=== PATIENT | male | born 1995 | race Two or more races ===

== ENCOUNTER 2023-03-02 12:53 | Emergency (ER) | payer BC ==
[~2023-03-02] VITALS: Ht 177.8 cm; Wt 96.0 kg
[2023-03-02] MEDS ORDERED: LIDOCAINE 1% HCL (LOCAL ANESTH.) INJ 20ML MDV IJ ONE (15:30)
[2023-03-02] MEDS ORDERED: AUG875T PO (15:37)
[2023-03-02] MEDS ORDERED: TETANUS-DIPTH-ACEL PERTUSSIS 0.5ML SYR Tdap IM ONE (15:45)
[2023-03-02 15:57] VITALS: BP 121/80; PULSE 97; RESP 18; TEMP 97.7; O2SAT 98
== END 2023-03-02 16:10 | disposition home or self-care (01) ==
LOC: ER 12:53
DX: S61.411A Laceration without foreign body of right hand, initial encounter (principal); S61.451A Open bite of right hand, initial encounter; Z79.2 Long term (current) use of antibiotics; W54.0XXA Bitten by dog, initial encounter; Y93.89 Activity, other specified; Y92.89 Other specified places as the place of occurrence of the external cause; Y99.8 Other external cause status
CPT/HCPCS: 12001; 90471; 90715; 99283; J2001